=== PATIENT | female | born 1995 | race American Indian/Alaskan Native ===

== ENCOUNTER 2020-05-26 10:42 | Emergency (ER) | payer OTHER ==
[2020-05-26 10:59] VITALS: BP 122/76
[2020-05-26 13:23] LABS: Basophils % (Auto) 0.5 % (0.0-1.8); Eosinophils # (Auto) 1.2 K/mm3 (0.0-0.4); Eosinophils % (Auto) 13.8 % (0.0-4.3); Hematocrit 41.9 % (30.3-42.9); Hemoglobin 13.7 gm/dl (10.1-14.3); Lymphocytes % (Auto) 22.1 % (13.4-35.0); Mean Corpuscular HGB Conc 33 % (30-34); Mean Corpuscular Volume 92 fl (79-97); Monocytes # (Auto) 0.6 K/mm3 (0.0-0.8); Monocytes % (Auto) 7.1 % (0.0-7.3); Platelet Count 292 K/mm3 (140-440); Red Blood Count 4.58 M/mm3 (3.65-5.03); Red Cell Distribution Width 13.4 % (13.2-15.2)
[2020-05-26 13:41] LABS: Alanine Aminotransferase 9 units/L (7-56); Albumin 4.8 g/dL (3.9-5); BUN/Creatinine Ratio 26; Blood Urea Nitrogen 18 mg/dL (7-17); Calcium 9.5 mg/dL (8.4-10.2); Hemolysis Index 12
[2020-05-26 14:46] LABS: Bilirubin,Urine NEG (Negative); Blood,Urine LG (Negative); Color,Urine Yellow (Yellow); Mucus,Urine 3+ /HPF; Protein,Urine <15 mg/dL mg/dL (Negative); Urobilinogen,Urine < 2.0 mg/dL (<2.0)
[2020-05-26 14:48] LABS: HCG Qualitative,Urine Negative (Negative)
--- NOTE | 2020-05-26 15:15 | XRay Report ---
CHEST 2 VIEWS INDICATION / CLINICAL INFORMATION: Chest pain. Chest pain with inhalation, chest soreness, hematuria. COMPARISON: None available. FINDINGS: SUPPORT DEVICES: None. HEART / MEDIASTINUM: No significant abnormality. LUNGS / PLEURA: No significant pulmonary or pleural abnormality. No pneumothorax. ADDITIONAL FINDINGS: No significant additional findings. IMPRESSION: 1. No acute abnormality of the chest. Signer Name: Agustin Bailey MD Signed: 05/26/2020 3:10 PM Workstation Name: [id number]
--- NOTE | 2020-05-26 15:25 | Emergency Department Report ---
ED General Adult HPI - General Chief complaint: Urogenital-Female Stated complaint: CHEST PAIN & BLOOD IN URINE Time Seen by Provider: 05/26/20 13:52 Source: patient Mode of arrival: Ambulatory Limitations: No Limitations - History of Present Illness Initial comments: Patient is a 24-year-old female presents emergency room with complaints of left- sided chest pain that feels like a pressure that began yesterday at 4 PM. She states it hurts worse with movement and laughing. She denies any cough, shortness of breath, nausea, vomiting, diarrhea, abdominal pain, dysuria. She states that she thought she noticed a small amount of blood in her urine this morning but has not had any since then. She denies any abdominal pain or back pain. She denies any recent travel, recent surgery, hormone use, sick contacts. She denies any past medical history. She denies any allergies to medications. - Related Data Previous Rx's Medication Instructions Recorded Last Taken Type Naproxen 500 mg PO BID PRN #14 tablet 05/26/20 Unknown Rx Allergies Allergy/AdvReac Type Severity Reaction Status Date / Time egg Allergy Swelling Verified 05/26/20 10:59 seafood Allergy Shortness Uncoded 05/26/20 10:59 of Breath ED Review of Systems ROS: Stated complaint: CHEST PAIN & BLOOD IN URINE Other details as noted in HPI Comment: All other systems reviewed and negative ED Past Medical Hx - Past Medical History Previous Medical History?: No - Surgical History Past Surgical History?: No - Medications Home Medications: Home Medications Medication Instructions Recorded Confirmed Last Taken Type Naproxen 500 mg PO BID PRN #14 tablet 05/26/20 Unknown Rx ED Physical Exam - General Limitations: No Limitations General appearance: alert, in no apparent distress - Head Head exam: Present: atraumatic, normocephalic - Eye Eye exam: Present: normal appearance - ENT ENT exam: Present: mucous membranes moist - Respiratory Respiratory exam: Present: normal lung sounds bilaterally, chest wall tenderness (mild left anterior chest wall ttp, no crepitus, no deformities, no ecchymosis). Absent: respiratory distress, wheezes, rales, rhonchi, stridor, accessory muscle use, decreased breath sounds, prolonged expiratory - Neurological Exam Neurological exam: Present: alert, oriented X3 - Psychiatric Psychiatric exam: Present: normal affect, normal mood - Skin Skin exam: Present: warm, dry, intact ED Course Vital Signs 05/26/20 10:57 Temperature 98.4 F Pulse Rate 90 Respiratory 16 Rate Blood Pressure 122/76 O2 Sat by Pulse 100 Oximetry ED Medical Decision Making - Lab Data Result diagrams: 05/26/20 12:25 05/26/20 12:25 Lab Results 05/26/20 05/26/20 05/26/20 Range/Units 12:25 12:25 14:08 WBC 8.8 (4.5-11.0) K/mm3 RBC 4.58 (3.65-5.03) M/mm3 Hgb 13.7 (10.1-14.3) gm/dl Hct 41.9 (30.3-42.9) % MCV 92 (79-97) fl MCH 30 (28-32) pg MCHC 33 (30-34) % RDW 13.4 (13.2-15.2) % Plt Count 292 (140-440) K/mm3 Lymph % (Auto) 22.1 (13.4-35.0) % [place] % (Auto) 7.1 (0.0-7.3) % Eos % (Auto) 13.8 H (0.0-4.3) % Baso % (Auto) 0.5 (0.0-1.8) % Lymph # 2.0 (1.2-5.4) K/mm3 [place] # 0.6 (0.0-0.8) K/mm3 Eos # 1.2 H (0.0-0.4) K/mm3 Baso # 0.0 (0.0-0.1) K/mm3 Seg Neutrophils % 56.5 (40.0-70.0) % Seg Neutrophils # 5.0 (1.8-7.7) K/mm3 Sodium 138 (137-145) mmol/L Potassium 4.8 (3.6-5.0) mmol/L Chloride 103.6 (98-107) mmol/L Carbon Dioxide 20 L (22-30) mmol/L Anion Gap 19 mmol/L BUN 18 H (7-17) mg/dL Creatinine 0.7 (0.7-1.2) mg/dL Estimated GFR > 60 ml/min BUN/Creatinine Ratio 26 % Glucose 84 (65-100) mg/dL Calcium 9.5 (8.4-10.2) mg/dL Total Bilirubin 0.40 (0.1-1.2) mg/dL AST 15 (5-40) units/L ALT 9 (7-56) units/L Alkaline Phosphatase 49 (35-129) units/L Total Protein 7.9 (6.3-8.2) g/dL Albumin 4.8 (3.9-5) g/dL Albumin/Globulin Ratio 1.5 % Urine Color Yellow (Yellow) Urine Turbidity Clear (Clear) Urine pH 5.0 (5.0-7.0) Ur Specific [place] 1.027 (1.003-1.030) Urine Protein <15 mg/dl (Negative) mg/dL Urine Glucose (UA) Neg (Negative) mg/dL Urine Ketones 20 (Negative) mg/dL Urine Blood Lg (Negative) Urine Nitrite Neg (Negative) Urine Bilirubin Neg (Negative) Urine Urobilinogen < 2.0 (<2.0) mg/dL Ur Leukocyte Esterase Neg (Negative) Urine WBC (Auto) 2.0 (0.0-6.0) /HPF Urine RBC (Auto) 6.0 (0.0-6.0) /HPF U Epithel Cells (Auto) 1.0 (0-13.0) /HPF Urine Mucus 3+ /HPF Urine HCG, Qual Negative (Negative) - EKG Data EKG shows normal: sinus rhythm, axis, intervals, QRS complexes, ST-T waves Rate: normal - Radiology Data Radiology results: report reviewed CXR: no acute process - Medical Decision Making Patient is a 24-year-old female presents emergency room with complaints of left- sided chest pain that feels like a pressure that began yesterday at 4 PM. She states it hurts worse with movement and laughing. She denies any cough, shortness of breath, nausea, vomiting, diarrhea, abdominal pain, dysuria. She states that she thought she noticed a small amount of blood in her urine this morning but has not had any since then. She denies any abdominal pain or back pain. She denies any recent travel, recent surgery, hormone use, sick contacts. She denies any past medical history. She denies any allergies to medications. Vitals are normal. On exam: mild left anterior chest wall ttp, no crepitus, no deformities, no ecchymosis. CXR: no acute process. PERC criteria negative for PE. Examination most likely consistent with costochondritis as patient has reproducible tenderness, discomfort with movement. Patient has no past medical history, do not suspect ACS. Patient given prescription for naproxen. Advised patient Please take medication as prescribed. May use ice pack, heating pad, re st, Epson salt bath. Follow-up with a primary care doctor. 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 Return to emergency room for any new or worsening symptoms. - Differential Diagnosis PNA, URI, costochondritis, GERD, muscle strain, ACS, PE, PTX Critical care attestation.: If time is entered above; I have spent that time in minutes in the direct care of this critically ill patient, excluding procedure time. ED Disposition Clinical Impression: Atypical chest pain Disposition: - TO HOME OR SELFCARE Is pt being admited?: No Does the pt Need Aspirin: No Condition: Stable Instructions: Costochondritis (ED) Additional Instructions: Please take medication as prescribed. May use ice pack, heating pad, rest, Epson salt bath. Follow-up with a primary care doctor. 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 Return to emergency room for any new or worsening symptoms. Prescriptions: Naproxen 500 mg PO BID PRN #14 tablet PRN Reason: pain Referrals: STEPHANIE HAWTHORNE MD [Staff Physician] - 2-3 Days [facility] [Provider Group] - 2-3 Days [facility] [Outside] - 2-3 Days IRVING STANLEY [Staff Physician] - 2-3 Days Time of Disposition: 15:42 Print Language: CHINESE
== END 2020-05-26 16:16 | disposition home or self-care (01) ==
LOC: ED 10:42
DX: R07.89 Other chest pain (principal); Z91.013 Allergy to seafood; Z91.012 Allergy to eggs
CPT/HCPCS: 36415; 71046; 80053; 81001; 81025; 85025; 93005; 99283